=== PATIENT | male | born 1995 | race Caucasian/White ===

== ENCOUNTER 2018-11-29 19:06 | Emergency (ER) | payer OTHER ==
--- NOTE | 2018-11-29 20:24 | EDPHY ---
H & P Smoking Status: Current every day smoker Time Seen by Provider: 11/29/18 19:33 HPI/ROS: HPI Left hand laceration. 23-year-old male by private vehicle with his girlfriend. He is right-hand dominant. He was at work. 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 1 of them broke. He sustained a clean linear laceration to the ventral base and thenar eminence of his left thumb. Last had a tetanus shot 5 years ago. Denies any other injury or complaint. Denies any loss of sensation or weakness distal to the wound. ROS: Constitutional: No fever, no chills. No weakness. Musculoskeletal: As above. Skin: As above. Neurological: No focal weakness or altered sensation. Past medical history: Right knee surgery. Social history: Nonsmoker. Here with his girlfriend. No alcohol. Physical Exam: General Appearance: Alert, no distress. This patient is responding to questions appropriately and in full sentences. This patient appears well- hydrated and well-nourished. Eyes: Pupils equal and round no pallor or injection. No lid edema, erythema or injection. Left hand exam: Significant for a linear clean laceration measuring approximately 4 cm ventral base of left thumb with involvement of the thenar eminence. No tendon injury identified. No foreign body identified on gross exploration. The left thumb is neurovascularly intact. Flexor function, extension, abduction and adduction and opposition are intact. Neurological: Motor sensory function is grossly intact. Cranial nerves are normal. Gait is normal. Skin: Warm and dry, no rashes. As above. Extremities are symmetrical. All joints range without pain or impingement. Psychiatric: No agitation. No depression. Database: EKG: Imaging: Procedures: Please see laceration repair note by physician optometric assistant Prieto Lima. Emergency department course: Triage vital signs reviewed and are normal. Wound care as above. After suture repair, wound care was discussed with the patient. Follow-up and return to emergency department precautions reviewed with him. All of his questions were answered. He was discharged from the emergency department in good condition with his girlfriend. Differential Diagnosis: The differential diagnosis on this patient includes but is not limited to left hand laceration. Retained foreign body, tendon injury, significant neurovascular injury unlikely. This represents a partial list of diagnoses considered. These considerations are based on history, physical exam, past history, reassessment and diagnostic testing. (Kim Tony) Constitutional: Initial Vital Signs Temperature (C) 36.7 C 11/29/18 19:10 Heart Rate 63 11/29/18 19:10 Respiratory Rate 16 11/29/18 19:10 Blood Pressure 131/91 H 11/29/18 19:10 O2 Sat (%) 96 11/29/18 19:10 O2 Delivery Mode Room Air Allergies/Adverse Reactions: No Known Allergies Allergy (Unverified 11/29/18 19:10) Home Medications: Medication Instructions Recorded NK [No Known Home Meds] 11/29/18 Medical Decision Making - Diagnostics Imaging Results: Imaging Impressions Hand X-Ray 11/29/18 19:51 Impression: Negative. No foreign body or fracture. Procedures: Procedure: Laceration repair. Verbal consent was obtained from the patient. The 4 cm laceration on the left hand was anesthetized in the usual fashion. The wound was irrigated, draped and explored to its base with a gloved finger. There were no deep structures involved. No tendon injury was identified. The wound was repaired with 5 0 Prolene, 9 simple interrupted sutures. The wound repair was simple. The procedure was performed by myself. Procedure: Splint placement. A Velcro thumb spica splint was applied. After application of the splint I returned and re-examined the patient. The splint was adequately immobilizing the joint and distal to the splint the patient's circulation and sensation was intact. (Prieto Lima) Departure - Departure Disposition: Home, Routine, Self-Care Clinical Impression: Laceration of left hand Condition: Good Instructions: Care For Your Stitches (ED), Laceration (ED) Additional Instructions: Read and follow provided instructions. Sutures are to be removed in 10-12 days. Follow-up with your primary care physician or workman's Comp physician in 2-3 days for re-evaluation and wound check. Ibuprofen dosin mg every 6 hours with meals for the next 3 days only. Take only as needed for pain. Return to the emergency department for worsening pain, loss of sensation, weakness, swelling, discoloration or other serious concerns. Referrals: NONE *PRIMARY CARE P,. [Primary Care Provider] - As per Instructions
[2018-11-29 21:23] VITALS: BP 122/73
== END 2018-11-29 21:22 | disposition home or self-care (01) ==
PROC: 0HQGXZZ Repair Left Hand Skin, External Approach (ICD-10-PCS; principal; 2018-11-29)
DX: S61.012A Laceration without foreign body of left thumb without damage to nail, initial encounter (principal); W25.XXXA Contact with sharp glass, initial encounter; Y93.G1 Activity, food preparation and clean up
CPT/HCPCS: L3807